=== PATIENT | female | born 1965 | race American Indian/Alaskan Native ===

== ENCOUNTER 2018-07-21 00:47 | Inpatient (IN) | payer SELFPAY ==
[2018-07-21] MEDS ORDERED: NACL 0.9% 1000 ML 1,000 ML IV ONE (01:01)
[2018-07-21 01:51] LABS: Basophils % (Auto) 0.4 % (0.0-1.8); Eosinophils # (Auto) 0.6 K/mm3 (0.0-0.4); Eosinophils % (Auto) 9.6 % (0.0-4.3); Hematocrit 35.1 % (30.3-42.9); Hemoglobin 11.5 gm/dl (10.1-14.3); Lymphocytes # (Auto) 1.6 K/mm3 (1.2-5.4); Lymphocytes % (Auto) 24.6 % (13.4-35.0); Mean Corpuscular HGB Conc 33 % (30-34); Mean Corpuscular Volume 83 fl (79-97); Monocytes # (Auto) 0.7 K/mm3 (0.0-0.8); Monocytes % (Auto) 10.9 % (0.0-7.3); Platelet Count 398 K/mm3 (140-440); Red Blood Count 4.24 M/mm3 (3.65-5.03); Red Cell Distribution Width 15.8 % (13.2-15.2)
[2018-07-21 02:00] LABS: INR 0.95 (0.87-1.13)
[2018-07-21 02:01] LABS: Partial Thromboplastin Time 25.3 Sec. (24.2-36.6)
[2018-07-21 02:14] LABS: Alanine Aminotransferase 15 units/L (7-56); Albumin 3.7 g/dL (3.9-5); BUN/Creatinine Ratio 21; Blood Urea Nitrogen 15 mg/dL (7-17); Calcium 9.2 mg/dL (8.4-10.2); Hemolysis Index 7
--- NOTE | 2018-07-21 02:39 | Emergency Department Report ---
HPI - General Chief Complaint: GI Bleed Time Seen by Provider: 07/21/18 01:43 - HPI HPI: 52-year-old female presents to the emergency department with complaint of a 3 week history of diarrhea and a a more recent history of blood in the stool. At first the blood appeared to be more bright red but over the past few days it has become black. Earlier in the week the patient had tried some Pepto-Bismol for her symptoms without relief. She called her physician in [place], where she currently lives, and was told to start Imodium right ear. It seemed to decrease the frequency of the diarrhea some but then the bleeding started. She denies any fever, abdominal pain, back pain. Patient does admit to history of sciatica for which she has been taking a lot of NSAIDs previously. She otherwise has a past medical history of diabetes and hypertension, hyperlipidemia. ED Past Medical Hx - Past Medical History Previous Medical History?: No Hx Hypertension: Yes Hx Diabetes: Yes Additional medical history: hyperlipidemia, overweight - Surgical History Past Surgical History?: No - Social History Smoking Status: Never Smoker Substance Use Type: None ED Review of Systems ROS: Stated complaint: DIARRHEA W/ BLOODY STOOLS Other details as noted in HPI Comment: All other systems reviewed and negative Constitutional: denies: chills, fever Eyes: denies: eye pain, vision change ENT: denies: ear pain, throat pain Respiratory: denies: cough Cardiovascular: denies: chest pain, palpitations Gastrointestinal: melena. denies: abdominal pain, vomiting Genitourinary: denies: dysuria, discharge Musculoskeletal: denies: joint swelling, arthralgia Skin: denies: rash, lesions Neurological: denies: headache, weakness Physical Exam - Physical Exam Vital Signs: Vital Signs 07/21/18 07/21/18 07/21/18 00:50 01:40 01:46 Temperature 98.3 F Pulse Rate 102 H 89 87 Respiratory 18 13 17 Rate Blood Pressure 155/90 140/67 O2 Sat by Pulse 100 94 90 Oximetry Physical Exam: GENERAL: The patient is well-developed well-nourished. HEENT: Normocephalic. Atraumatic. Patient has moist mucous membranes. EYES: Extraocular motions are intact. Pupils are equal and reactive to light bilaterally. NECK: Supple. Trachea is midline. CHEST/LUNGS: Clear to auscultation. There is no respiratory distress noted. HEART/CARDIOVASCULAR: Regular. There is no tachycardia. There is no obvious murmur. ABDOMEN: Abdomen is soft, nontender. Patient has normal bowel sounds. There is no abdominal distention. SKIN: Skin is warm and dry. NEURO: The patient is awake, alert, and oriented. The patient is cooperative. The patient has no focal neurologic deficits. The patient has normal speech. MUSCULOSKELETAL: There is no tenderness or deformity. There is no limitation r silvio of motion. There is no evidence of acute injury. RECTAL: Patient has nonthrombosed external hemorrhoids. There is dark black stool that is positive on guaiac testing. ED Course Vital Signs 07/21/18 07/21/18 07/21/18 00:50 01:40 01:46 Temperature 98.3 F Pulse Rate 102 H 89 87 Respiratory 18 13 17 Rate Blood Pressure 155/90 140/67 O2 Sat by Pulse 100 94 90 Oximetry ED Medical Decision Making - Lab Data Result diagrams: 07/21/18 01:11 07/21/18 01:11 - Radiology Data Radiology results: report reviewed PROCEDURE: CT ABDOMEN PELVIS W CON TECHNIQUE: Computerized axial tomography of the abdomen and pelvis was performed after the IV injection of iodinated nonionic contrast. HISTORY: Abd pain, GI Bleed COMPARISON: No prior studies are available for comparison. FINDINGS: Visualized lower thorax: No significant abnormality. Liver: There is a 1.5 centimeter area of hypoattenuation in the central right lobe of the liver. A vascular malformation such as hemangioma is suspected. The size and remaining echogenicity of the liver is normal.. Spleen: Normal size and attenuation. Gallbladder and biliary system: Normal. Pancreas: Normal. Adrenals: Normal. Kidneys: No hydronephrosis. No renal stones or masses. GI tract: No obstruction. No ileus or enteritis. The cecum, appendix and colon are normal.. Lymph nodes and mesentery: Normal. Vasculature: Normal. Bladder: Normal. Reproductive organs: Normal. Peritoneum: No free fluid. Musculoskeletal structures: No significant abnormality. Other: None. IMPRESSION: Normal examination of the abdomen and pelvis Transcribed By: [facility] Dictated By: RAMONA MARIE MD Electronically Authenticated By: RAMONA MARIE MD Signed Date/Time: 07/21/18 0429 - Medical Decision Making This patient presents with about a 3 week history of copious diarrhea and about 5 days of rectal bleeding with the diarrhea. More recently she describes it as being melena and on examination she does have some dark black stool that was positive on guaiac testing. The patient also says that she's been taking a lot of NSAIDs prior to all this secondary to some chronic back pain and sciatica. However the patient denies any upper abdominal pain. Labs have been mostly unremarkable. CT scan did not show any intra-abdominal or pelvic pathology. The patient has used the bathroom for diarrhea about 5 times since being in the emergency department. She lives in [place] and does not return there for about 5 days and does not have any established care with gastroenterology there. For this reason, with the GI bleeding, the patient will be admitted to the hospital for further evaluation and treatment. She has been started on some Protonix. She was accepted for admission by the hospitalist, Dr. Almodovar. - Differential Diagnosis hemorrhoids, malignancy, gastric or duodenal ulcer, PUD Critical Care Time: No Critical care attestation.: If time is entered above; I have spent that time in minutes in the direct care of this critically ill patient, excluding procedure time. ED Disposition Clinical Impression: Melena GI bleed Qualifiers: GI bleed type/associated pathology: melena Qualified Code(s): K92.1 - Melena Diarrhea Qualifiers: Diarrhea type: unspecified type Qualified Code(s): R19.7 - Diarrhea, unspecified Disposition: OP ADMIT IP TO THIS HOSP Is pt being admited?: Yes Condition: Fair Referrals: KEITH NOEL MD [Primary Care Provider] - 3-5 Days Forms: Accompanied Note Time of Disposition: 06:11
--- NOTE | 2018-07-21 04:29 | Cat Scan Report ---
FINAL REPORT PROCEDURE: CT ABDOMEN PELVIS W CON TECHNIQUE: Computerized axial tomography of the abdomen and pelvis was performed after the IV inject ion of iodinated nonionic contrast. HISTORY: Abd pain, GI Bleed COMPARISON: No prior studies are available for comparison. FINDINGS: Visualized lower thorax: No significant abnormality. Liver: There is a 1.5 centimeter area of hypoattenuation in the central right lobe of the liver. A va scular malformation such as hemangioma is suspected. The size and remaining echogenicity of the liver is normal.. Spleen: Normal size and attenuation. Gallbladder and biliary system: Normal. Pancreas: Normal. Adrenals: Normal. Kidneys: No hydronephrosis. No renal stones or masses. GI tract: No obstruction. No ileus or enteritis. The cecum, appendix and colon are normal.. Lymph nodes and mesentery: Normal. Vasculature: Normal. Bladder: Normal. Reproductive organs: Normal. Peritoneum: No free fluid. Musculoskeletal structures: No significant abnormality. Other: None. IMPRESSION: Normal examination of the abdomen and pelvis
[2018-07-21] MEDS ORDERED: PROTONIX IV ONE (05:12)
[2018-07-21] MEDS ORDERED: LEVAQUIN 750MG/150ML 750 MG/150 ML BAG IV ONE (05:14)
[2018-07-21] MEDS ORDERED: PROTONIX 80 MG in NACL 0.9% 100 ML IV SCH (06:00)
[2018-07-21] MEDS ORDERED: ZOFRAN IV PRN (06:16)
[2018-07-21] MEDS ORDERED: D50W (25GM) Syringe IV PRN (06:18)
--- NOTE | 2018-07-21 07:45 | History and Physical Report ---
CHIEF COMPLAINT: Melena stool with diarrhea. HISTORY OF PRESENT ILLNESS: The patient is a 52-year-old female who said she has been having diarrhea for about 3 weeks and then about a week and half ago, she started seeing bright red blood in stool and then it turned into dark stool and has been dark since then. The patient states she has tried Pepto-Bismol for her symptoms without relief. She called up to her primary care doctor in [place] who told her to start Imodium. She said that the Imodium seemed to decrease the frequency of the diarrhea and then she started bleeding per rectum. There is no history of abdominal pain and no history of fever or chills. Also, the patient admitted to taking Aleve tablets a lot for treatment of her sciatica. There is no history of nausea and vomiting. There is no history of shortness of breath or chest pain. PAST MEDICAL HISTORY: Pertinent for hypertension, diabetes mellitus, hyperlipidemia, obesity. PAST SURGICAL HISTORY: Unremarkable. FAMILY HISTORY: Noncontributory. SOCIAL HISTORY: The patient does not smoke, does not drink alcohol, and does not use illicit drugs. MEDICATIONS: The patient's home medications are not known at this time. ALLERGIES: THE PATIENT IS ALLERGIC TO SULFA DRUGS. REVIEW OF SYSTEMS: CONSTITUTIONAL: There is no fever, no chills, no diaphoresis. HEENT: There is no headache or sore throat. CARDIOVASCULAR SYSTEM: There is no chest pain or orthopnea. RESPIRATORY SYSTEM: There is no shortness of breath or cough. GASTROINTESTINAL SYSTEM: There is no abdominal pain and there is no nausea, no vomiting, but there is diarrhea and there is melena and no hematochezia. NEUROLOGICAL SYSTEM: There is no numbness, no dizziness, no altered mental status. MUSCULOSKELETAL SYSTEM: There is no joint pain or swelling. DERMATOLOGICAL SYSTEM: There is no skin rash or itching. GENITOURINARY SYSTEM: There is no dysuria, hematuria, or flank pain. Rest of system review is normal. PHYSICAL EXAMINATION: GENERAL: At the time of exam, the patient was found to be alert, oriented x 3, and not in acute distress. VITAL SIGNS: At the initial time of presentation showed temperature of 98.3 degrees Fahrenheit, pulse of 102, respirations 18, blood pressure 155/90, O2 sat of 100% on room air. HEENT: Showed pupils to be equal, round, reactive to light and accommodating. Extraocular muscles are intact. NECK: Neck is supple with no JVD or carotid bruit. CARDIOVASCULAR SYSTEM: Showed normal first and second heart sounds with no gallops or murmurs. RESPIRATORY SYSTEM: Showed good air entry on both sides of the lungs with no abnormal breath sounds. GASTROINTESTINAL SYSTEM: Show abdomen to be full, soft, nontender with no organomegaly or rigidity. NEUROLOGICAL: Show no focal deficits. MUSCULOSKELETAL SYSTEM: Show no joint swelling or tenderness. DERMATOLOGICAL SYSTEM: Show no skin rash. GENITOURINARY SYSTEM: Showing no costovertebral angle tenderness. PERTINENT LABORATORY AND IMAGING STUDIES: The patient had CT of the abdomen and pelvis done that came back unremarkable. The patient's lab results shows CBC with normal white count, normal hemoglobin, and normal hematocrit with CBC differential showing elevated monocyte count of 10.9. The patient's coagulation studies were unremarkable and chemistry came back with a slightly low albumin level of 3.7. DIAGNOSES: 1. Gastrointestinal bleed. 2. Diarrhea. PLAN OF CARE: 1. The patient will be admitted to telemetry as inpatient. 2. The patient will have hemoglobin and hematocrit checked every 6 hours x 3 more levels. 3. The patient will continue GI consult with Dr. Timbo Vines requested by the Emergency Room physician. 4. The patient will be n.p.o. until seen by the Gastroenterology. 5. The patient will continue IV Protonix drip started in the Emergency Room and will be on IV normal saline at 125 mL an hour. 6. The patient's DVT prophylaxis will be through sequential compressive device. JOB# [id number] OCN/NTS AMANDA
[2018-07-21] MEDS: HumuLIN R SUB-Q SCH ×5 (08:15→23:11)
[2018-07-21] MEDS: NACL 0.9% 1000 ML 1,000 ML IV SCH ×2 (08:16→21:04)
[2018-07-21 11:52] LABS: Hematocrit 33.6 % (30.3-42.9); Hemoglobin 11.1 gm/dl (10.1-14.3)
--- NOTE | 2018-07-21 13:23 | Gastroenterology Consultation ---
Addendum entered and electronically signed by MIK ONEAL MD 07/21/18 19:36: I have personally interviewed and examined the patient. She is doing well without N/V/Abdominal pain. Suspect the dark stools were due to peptobismol. No role for endoscopy at present. Will follow to assure acute GI issues resolve. Original Note: History of Present Illness - Reason for Consult Consult date: 07/21/18 GI bleed,melena? Requesting physician: CATHY SAMUEL - History of Present Illness Patient is a 52 y/o female with PMH of HTN, DM, HLD, obesity, and chronic back pain (sciatica) who presented to ED with c/o diarrhea and blood in her stool to which GI has been consulted. This morning patient was resting in bed w/o acute distress. Reports an acute onset of diarrhea with loose watery stools x 3 weeks with BMs x 6-7/day (baseline is BM x 1/day). Admits to also having blood in her stool with a scant amount of bright red blood at first with stools later becoming black in color and mild rectal pain (no rectal trauma). Has been taking Imodium and pepto-bismol at home for diarrhea, along with heavy NSAID use for chronic back pain (Naproxen/Aleve). Denies fever, CP, SOB, abd pain, N/V, hematemesis, or constipation. No recent abx therapy, travel, or ill contacts. No previous hx of GI bleeding, PUD, liver disease, or EGD. Last colonoscopy was 3 years ago in [place] that showed diverticulosis. No Fhx of GI cancers. Abd CT upon admission was negative and H/H WNL. Upon exam, abd benign and rectal revealed liquid brown stool and external hemorrhoids (one slightly thrombosed). Past History Past Medical History: diabetes, hypertension, hyperlipidemia, other (obesity) Past Surgical History: No surgical history Social history: denies: smoking, alcohol abuse Medications and Allergies Allergies Allergy/AdvReac Type Severity Reaction Status Date / Time sulfamethoxazole Allergy Hives Verified 07/21/18 00:50 [From Bactrim] trimethoprim [From Bactrim] Allergy Hives Verified 07/21/18 00:50 Active Meds: Active Medications Dextrose (D50w (25gm) Syringe) 50 ml IV PRN PRN PRN Reason: Hypoglycemia Pantoprazole Sodium 80 mg/ (Sodium Chloride) 100 mls @ 10 mls/hr IV DIRECT ROLNAD Last Admin: 07/21/18 07:40 Dose: 8 mg/hr, 10 mls/hr Documented by: Sodium Chloride (Nacl 0.9% 1000 Ml) 1,000 mls @ 125 mls/hr IV DIRECT ROLAND Last Admin: 07/21/18 08:16 Dose: 125 mls/hr Documented by: Insulin Human Regular (Humulin R) 0 units SUB-Q Q4H ROLAND; Protocol Last Admin: 07/21/18 11:00 Dose: Not Given Documented by: Ondansetron HCl (Zofran) 4 mg IV Q8H PRN PRN Reason: Nausea And Vomiting medications reviewed/updated as required Review of Systems - Review of Systems All systems: negative Gastrointestinal: diarrhea, other (blood in stool-bright red blood and black stool) Exam - Constitutional Vital Signs: Temp Pulse Resp BP Pulse Ox 98.3 F 76 15 127/65 97 07/21/18 00:50 07/21/18 10:06 07/21/18 09:00 07/21/18 10:06 07/21/18 10:06 General appearance: no acute distress, obese - EENT Eyes: PERRL, EOM intact ENT: hearing intact - Respiratory Respiratory: bilateral: CTA - Cardiovascular Rhythm: regular Heart Sounds: Present: S1 & S2 - Gastrointestinal General gastrointestinal: Present: soft, non-tender, non-distended, normal bowel sounds Rectal Exam: other (liquid brown stool and external hemorroids (one slightly thrombosed)-reed or wind instrument repairer present during exam (Breann BANEGAS)) - Neurologic Neurological: alert and oriented x3 - Labs CBC & Chem 7: 07/21/18 11:30 07/21/18 01:11 Lab Results: Laboratory Results - last 24 hr 07/21/18 07/21/18 07/21/18 01:11 01:11 01:11 WBC 6.5 RBC 4.24 Hgb 11.5 Hct 35.1 MCV 83 MCH 27 L MCHC 33 RDW 15.8 H Plt Count 398 Lymph % (Auto) 24.6 Canadian % (Auto) 10.9 H Eos % (Auto) 9.6 H Baso % (Auto) 0.4 Lymph # 1.6 Canadian # 0.7 Eos # 0.6 H Baso # 0.0 Seg Neutrophils % 54.5 Seg Neutrophils # 3.5 PT 13.1 INR 0.95 APTT 25.3 Sodium 138 Potassium 3.9 Chloride 99.3 Carbon Dioxide 26 Anion Gap 17 BUN 15 Creatinine 0.7 Estimated GFR > 60 BUN/Creatinine Ratio 21 Glucose 141 H POC Glucose Calcium 9.2 Total Bilirubin 0.20 AST 18 ALT 15 Alkaline Phosphatase 114 Total Protein 7.7 Albumin 3.7 L Albumin/Globulin Ratio 0.9 Lipase 23 Blood Type Antibody Screen 07/21/18 07/21/18 07/21/18 01:11 08:11 11:30 WBC RBC Hgb 11.1 Hct 33.6 MCV MCH MCHC RDW Plt Count Lymph % (Auto) Canadian % (Auto) Eos % (Auto) Baso % (Auto) Lymph # Canadian # Eos # Baso # Seg Neutrophils % Seg Neutrophils # PT INR APTT Sodium Potassium Chloride Carbon Dioxide Anion Gap BUN Creatinine Estimated GFR BUN/Creatinine Ratio Glucose POC Glucose 98 Calcium Total Bilirubin AST ALT Alkaline Phosphatase Total Protein Albumin Albumin/Globulin Ratio Lipase Blood Type A POSITIVE Antibody Screen Negative 07/21/18 12:17 WBC RBC Hgb Hct MCV MCH MCHC RDW Plt Count Lymph % (Auto) Canadian % (Auto) Eos % (Auto) Baso % (Auto) Lymph # Canadian # Eos # Baso # Seg Neutrophils % Seg Neutrophils # PT INR APTT Sodium Potassium Chloride Carbon Dioxide Anion Gap BUN Creatinine Estimated GFR BUN/Creatinine Ratio Glucose POC Glucose 82 Calcium Total Bilirubin AST ALT Alkaline Phosphatase Total Protein Albumin Albumin/Globulin Ratio Lipase Blood Type Antibody Screen Assessment and Plan 1.GI bleed 2.diarrhea -afebrile -INR 0.95 -BUN 15 -LFTs and lipase WNL -abd CT negative -H/H WNL (11.1/33.6)-stable -continue to monitor H/H and transfuse as needed -patient reports acute on set of diarrhea x 3 weeks with watery stool with scant amount of bright red blood in stool, which recent turned black in color (was taking pepto-bismol at home). No abd pain, N/V, hematemeis. Rectal exam today, revealed liquid brown stool with external hemorrhoids (one slightly thrombosed). -last colonoscopy was 3 years ago in [place] that revealed diverticulosis per pt report -etiology-BRBPR- likely 2/2 hemorrhoids; black stool likely 2/2 pepto-bismol vs other -stool studies pending for diarrhea -no plans for scope at this time given no clinical evidence of significant GI bleeding (will consider based on progress) -okay for clear liquids -continue PPI -start on topical analgesics/steroids for hemorrhoids -continue supportive care -will follow
[2018-07-21] MEDS ORDERED: XYLOCAINE TOPICAL 2% 30ML TP PRN (14:54)
[2018-07-21] MEDS ORDERED: XYLOCAINE TOPICAL 2% 5ML TP ONE (15:00)
[2018-07-21] MEDS: PROCTOSOL-HC PR PRN (16:36)
--- NOTE | 2018-07-21 19:17 | Event Note ---
Date: 07/21/18 Patient seen and examined medical records reviewed Patient was admitted this morning with melena and GI bleeding GI evaluated the patient, no plans of endoscopy at this point Continue Protonix, supportive care for hemorrhoids Agree with the current management closely monitor plan of care reviewed with the patient and her nurse
[2018-07-21 19:24] LABS: Hematocrit 32.4 % (30.3-42.9); Hemoglobin 10.5 gm/dl (10.1-14.3)
[2018-07-21] MEDS: PROTONIX IV SCH (21:04)
[2018-07-22 01:17] LABS: Hematocrit 30.1 % (30.3-42.9); Hemoglobin 9.7 gm/dl (10.1-14.3)
[2018-07-22] MEDS: NACL 0.9% 1000 ML 1,000 ML IV SCH (04:12)
[2018-07-22] MEDS: HumuLIN R SUB-Q SCH ×3 (07:44→22:35)
--- NOTE | 2018-07-22 10:28 | Gastroenterology Progress Note ---
Addendum entered and electronically signed by MIK ONEAL MD 07/22/18 16:16: I have personally interviwed and examined the patient. I agree with the above A/P. Will start abx, and consider repeat colonoscopy based on clinical course. Addendum entered and electronically signed by CHEYANNE LOPEZ NP 07/22/18 14:48: start on empiric antibiotics (levaquin/flagyl) Addendum entered and electronically signed by CHEYANNE LOPEZ NP 07/22/18 13:01: TSH in am Original Note: Assessment and Plan 1.GI bleed 2.diarrhea -afebrile -INR 0.95 -BUN 15 -LFTs and lipase WNL -abd CT negative -H/H 9.7/31.0 -continue to monitor H/H and transfuse as needed -no active signs of bleeding overnight or this am -last colonoscopy was 3 years ago in [place] that revealed diverticulosis per pt report -black [id number] from pepto-bismol -[id number] 2/2 hemorrhoids -no plan for scope at this time unless over overt bleeding develops -clinically, patient is stable. Reports hemorrhoid/rectal pain/bleeding now improved. Has c/o continued diarrhea with BMs x 3 overnight with watery brown stool. Denies abd pain or N/V. Tolerating clears. -stool studies pending -okay to advance diet -continue PPI and proctosol -continue supportive care -will follow Subjective Date of service: 07/22/18 Principal diagnosis: GI bleed Interval history: Patient resting in bed w/o acute distress. Reports no active signs of bleeding overnight or this am and rectal/hemorrhoid pain improved with proctosol but has continued diarrhea with 3 BMs overnight with watery brown stool. No abd pain or N/V. Tolerating clears. Objective - Constitutional Vitals: Temp Pulse Resp BP Pulse Ox 98.2 F 70 18 119/54 97 07/22/18 04:56 07/22/18 04:56 07/22/18 04:56 07/22/18 04:56 07/22/18 04:56 General appearance: no acute distress - Respiratory Respiratory: bilateral: CTA - Cardiovascular Rhythm: regular Heart Sounds: Present: S1 & S2 - Gastrointestinal General gastrointestinal: Present: soft, non-tender, non-distended, normal bowel sounds - Neurologic Neurological: alert and oriented x3 - Labs CBC & Chem 7: 07/22/18 01:03 07/21/18 01:11 Labs: Laboratory Results - last 24 hr 07/21/18 07/21/18 07/21/18 11:30 12:17 16:42 Hgb 11.1 Hct 33.6 POC Glucose 82 95 07/21/18 07/21/18 07/22/18 19:14 22:45 01:03 Hgb 10.5 9.7 L Hct 32.4 30.1 L POC Glucose 107 H 07/22/18 05:01 Hgb Hct POC Glucose 102
[2018-07-22] MEDS: PROCTOSOL-HC PR PRN (11:44)
[2018-07-22] MEDS: PROTONIX PO SCH ×2 (11:44→22:35)
[2018-07-22] MEDS: PROTONIX IV SCH (11:45)
--- NOTE | 2018-07-22 15:37 | Progress Note ---
Assessment and Plan Assessment and plan: 52-year-old morbidly obese female patient was admitted to the emergency room with 3 weeks of diarrhea and recent episodes of rectal bleeding bright red as well as melena, Patient is hemodynamically stable GI evaluation the patient endoscopy, Patient has chronic diarrhea possible colitis, GI started empiric antibiotics --Rectal bleeding/melena; resolved, closely monitor --Acute on chronic diarrhea; probably infectious/colitis Empiric antibiotics Levaquin and Flagyl, supportive care, stool analysis --Morbid obesity BMI 45.9, Counseling, diet modification, exercise as tolerated and weight reduction when medically stable --DVT prophylaxis; Lovenox Closely monitor patient had just management as needed GI evaluation recommendation noted and appreciated ; History Interval history: Patient seen and examined medical records reviewed Patient continues to have diarrhea and vague abdominal pain intermittent Denies hematemesis or melena Alert awake oriented 3 Vital signs noted Hospitalist Physical - Constitutional Vitals: Temp Pulse Resp BP Pulse Ox 98.7 F 82 20 130/66 98 07/22/18 08:44 07/22/18 08:44 07/22/18 08:44 07/22/18 08:44 07/22/18 08:44 General appearance: Present: no acute distress, well-nourished, obese (morbidly obese) - EENT Eyes: Present: PERRL, EOM intact - Neck Neck: Present: supple, normal ROM - Respiratory Respiratory effort: normal Respiratory: bilateral: diminished, negative: rales, rhonchi, wheezing - Cardiovascular Rhythm: regular Heart Sounds: Present: S1 & S2 - Extremities Extremities: no ischemia, No edema - Abdominal General gastrointestinal: soft, non-tender, non-distended, normal bowel sounds - Integumentary Integumentary: Present: clear, warm - Psychiatric Psychiatric: appropriate mood/affect, cooperative - Neurologic Neurologic: CNII-XII intact, moves all extremities Results - Labs CBC & Chem 7: 07/22/18 01:03 07/21/18 01:11 Labs: Laboratory Last Values WBC 6.5 K/mm3 (4.5-11.0) 07/21/18 01:11 RBC 4.24 M/mm3 (3.65-5.03) 07/21/18 01:11 Hgb 9.7 gm/dl (10.1-14.3) L 07/22/18 01:03 Hct 30.1 % (30.3-42.9) L 07/22/18 01:03 MCV 83 fl (79-97) 07/21/18 01:11 MCH 27 pg (28-32) L 07/21/18 01:11 MCHC 33 % (30-34) 07/21/18 01:11 RDW 15.8 % (13.2-15.2) H 07/21/18 01:11 Plt Count 398 K/mm3 (140-440) 07/21/18 01:11 Lymph % (Auto) 24.6 % (13.4-35.0) 07/21/18 01:11 [place] % (Auto) 10.9 % (0.0-7.3) H 07/21/18 01:11 Eos % (Auto) 9.6 % (0.0-4.3) H 07/21/18 01:11 Baso % (Auto) 0.4 % (0.0-1.8) 07/21/18 01:11 Lymph # 1.6 K/mm3 (1.2-5.4) 07/21/18 01:11 [place] # 0.7 K/mm3 (0.0-0.8) 07/21/18 01:11 Eos # 0.6 K/mm3 (0.0-0.4) H 07/21/18 01:11 Baso # 0.0 K/mm3 (0.0-0.1) 07/21/18 01:11 Seg Neutrophils % 54.5 % (40.0-70.0) 07/21/18 01:11 Seg Neutrophils # 3.5 K/mm3 (1.8-7.7) 07/21/18 01:11 PT 13.1 Sec. (12.2-14.9) 07/21/18 01:11 INR 0.95 (0.87-1.13) 07/21/18 01:11 APTT 25.3 Sec. (24.2-36.6) 07/21/18 01:11 Sodium 138 mmol/L (137-145) 07/21/18 01:11 Potassium 3.9 mmol/L (3.6-5.0) 07/21/18 01:11 Chloride 99.3 mmol/L (98-107) 07/21/18 01:11 Carbon Dioxide 26 mmol/L (22-30) 07/21/18 01:11 Anion Gap 17 mmol/L 07/21/18 01:11 BUN 15 mg/dL (7-17) 07/21/18 01:11 Creatinine 0.7 mg/dL (0.7-1.2) 07/21/18 01:11 Estimated GFR > 60 ml/min 07/21/18 01:11 BUN/Creatinine Ratio 21 % 07/21/18 01:11 Glucose 141 mg/dL (65-100) H 07/21/18 01:11 POC Glucose 104 (70-105) 07/22/18 12:08 Calcium 9.2 mg/dL (8.4-10.2) 07/21/18 01:11 Total Bilirubin 0.20 mg/dL (0.1-1.2) 07/21/18 01:11 AST 18 units/L (5-40) 07/21/18 01:11 ALT 15 units/L (7-56) 07/21/18 01:11 Alkaline Phosphatase 114 units/L (35-129) 07/21/18 01:11 Total Protein 7.7 g/dL (6.3-8.2) 07/21/18 01:11 Albumin 3.7 g/dL (3.9-5) L 07/21/18 01:11 Albumin/Globulin Ratio 0.9 % 07/21/18 01:11 Lipase 23 units/L (13-60) 07/21/18 01:11 C. difficile Toxin A&B Negative (Negative) 07/21/18 02:00 Blood Type A POSITIVE 07/21/18 01:11 Antibody Screen Negative 07/21/18 01:11
[2018-07-22] MEDS: FLAGYL 500 MG/100 ML 500 MG/100 ML BAG IV SCH ×2 (16:17→23:58)
[2018-07-22] MEDS: LEVAQUIN 500MG/100ML 500 MG/100 ML BAG IV SCH (16:17)
[2018-07-23] MEDS: NACL 0.9% 1000 ML 1,000 ML IV SCH (00:04)
[2018-07-23] MEDS: HumuLIN R SUB-Q SCH ×3 (08:07→18:36)
[2018-07-23] MEDS: FLAGYL 500 MG/100 ML 500 MG/100 ML BAG IV SCH ×2 (09:10→17:26)
[2018-07-23] MEDS: PROTONIX PO SCH ×2 (10:46→21:54)
--- NOTE | 2018-07-23 11:32 | Gastroenterology Progress Note ---
Addendum entered and electronically signed by MIK ONEAL MD 07/23/18 15:33: I have personally interviewed and examined the patient. She is markedly better with much less urgency, and less frequent BMs. OK to d/c home on a 5 day total course of antibiotics (is on day 2 currently). Original Note: Assessment and Plan 1.GI bleed 2.diarrhea -afebrile -abd CT negative -WBC and H/H WNL -TSH 43.380 -no active signs of bleeding overnight or this am -stool negative for C-diff -stool culture pending -stool for WBC- showed many polymorphonuclear cells -last colonoscopy was 3 years ago in [place] that revealed diverticulosis per pt report -black [id number] from pepto-bismol -[id number] 2/2 hemorrhoids; hemorrhoids/rectal pain now improved with proctosol -no plan for scope at this time -clinically, patient is stable. Reports diarrhea now improving. Denies abd pain or N/V. Tolerating diet. -transition empiric antibiotics (levaquin/flagyl) to PO -continue PPI and proctosol -continue supportive care -consider repeat colonoscopy as outpatient if diarrhea persists -no further recommendations at this time -patient okay to be d/c per GI standpoint on antibiotics x 5 days with follow up in clinic -will sign off, please call if eneded Subjective Date of service: 07/23/18 Principal diagnosis: GI bleed Interval history: No acute distress. Reports diarrhea now improving on empiric antibiotics (frequency decreasing with BMs x 2 overnight and this am). Denies abd pain, N/V, or signs of bleeding. Tolerating diet. Objective - Constitutional Vitals: Temp Pulse Resp BP Pulse Ox 98.3 F 75 14 139/81 96 07/23/18 04:48 07/23/18 04:48 07/23/18 04:48 07/23/18 04:48 07/23/18 04:48 General appearance: no acute distress, obese - Respiratory Respiratory: bilateral: CTA - Cardiovascular Rhythm: regular Heart Sounds: Present: S1 & S2 - Gastrointestinal General gastrointestinal: Present: soft, non-tender, non-distended, normal bowel sounds - Neurologic Neurological: alert and oriented x3 - Labs CBC & Chem 7: 07/22/18 01:03 07/21/18 01:11 Labs: Laboratory Results - last 24 hr 07/21/18 07/22/18 07/22/18 02:00 12:08 17:45 POC Glucose 104 96 TSH C. difficile Toxin A&B Negative 07/22/18 07/23/18 07/23/18 20:43 05:34 05:40 POC Glucose 156 H 93 TSH 4.380 H C. difficile Toxin A&B
[2018-07-23] MEDS: LEVAQUIN 500MG/100ML 500 MG/100 ML BAG IV SCH (16:05)
[2018-07-23] MEDS ORDERED: PROCTOSOL-HC PR PRN (17:00)
--- NOTE | 2018-07-23 17:59 | Progress Note ---
Assessment and Plan Assessment and plan: 52-year-old morbidly obese female patient was admitted to the emergency room with 3 weeks of diarrhea and recent episodes of rectal bleeding bright red as well as melena, Patient is hemodynamically stable GI evaluation no plans of endoscopy, Patient has chronic diarrhea possible colitis, GI started empiric antibiotics --Rectal bleeding/melena; resolved, closely monitor --Acute on chronic diarrhea; probably infectious/colitis Empiric antibiotics Levaquin and Flagyl, supportive care, stool analysis Recommend total 5 days of antibiotics, C. difficile negative --Morbid obesity BMI 45.9, Counseling, diet modification, exercise as tolerated and weight reduction when medically stable --DVT prophylaxis; Lovenox Closely monitor patient had just management as needed Possible discharge home tomorrow if stable ; History Interval history: Patient seen and examined medical records reviewed Patient continues to have most he had about 5-6 loose bowel movements Complaints of mild dizziness and weakness Alert awake oriented 3 Vital signs noted, Hospitalist Physical - Constitutional Vitals: Temp Pulse Resp BP Pulse Ox 98.1 F 81 16 142/77 96 07/23/18 17:38 07/23/18 17:38 07/23/18 17:38 07/23/18 17:38 07/23/18 17:38 General appearance: Present: no acute distress, well-nourished, obese (morbidly obese) - EENT Eyes: Present: PERRL, EOM intact - Neck Neck: Present: supple, normal ROM - Respiratory Respiratory effort: normal Respiratory: bilateral: diminished, negative: rales, rhonchi, wheezing - Cardiovascular Rhythm: regular Heart Sounds: Present: S1 & S2 - Extremities Extremities: no ischemia, No edema - Abdominal General gastrointestinal: soft, non-tender, non-distended, normal bowel sounds - Integumentary Integumentary: Present: clear, warm - Psychiatric Psychiatric: appropriate mood/affect, cooperative - Neurologic Neurologic: CNII-XII intact, moves all extremities Results - Labs CBC & Chem 7: 07/22/18 01:03 07/21/18 01:11 Labs: Laboratory Last Values WBC 6.5 K/mm3 (4.5-11.0) 07/21/18 01:11 RBC 4.24 M/mm3 (3.65-5.03) 07/21/18 01:11 Hgb 9.7 gm/dl (10.1-14.3) L 07/22/18 01:03 Hct 30.1 % (30.3-42.9) L 07/22/18 01:03 MCV 83 fl (79-97) 07/21/18 01:11 MCH 27 pg (28-32) L 07/21/18 01:11 MCHC 33 % (30-34) 07/21/18 01:11 RDW 15.8 % (13.2-15.2) H 07/21/18 01:11 Plt Count 398 K/mm3 (140-440) 07/21/18 01:11 Lymph % (Auto) 24.6 % (13.4-35.0) 07/21/18 01:11 [place] % (Auto) 10.9 % (0.0-7.3) H 07/21/18 01:11 Eos % (Auto) 9.6 % (0.0-4.3) H 07/21/18 01:11 Baso % (Auto) 0.4 % (0.0-1.8) 07/21/18 01:11 Lymph # 1.6 K/mm3 (1.2-5.4) 07/21/18 01:11 [place] # 0.7 K/mm3 (0.0-0.8) 07/21/18 01:11 Eos # 0.6 K/mm3 (0.0-0.4) H 07/21/18 01:11 Baso # 0.0 K/mm3 (0.0-0.1) 07/21/18 01:11 Seg Neutrophils % 54.5 % (40.0-70.0) 07/21/18 01:11 Seg Neutrophils # 3.5 K/mm3 (1.8-7.7) 07/21/18 01:11 PT 13.1 Sec. (12.2-14.9) 07/21/18 01:11 INR 0.95 (0.87-1.13) 07/21/18 01:11 APTT 25.3 Sec. (24.2-36.6) 07/21/18 01:11 Sodium 138 mmol/L (137-145) 07/21/18 01:11 Potassium 3.9 mmol/L (3.6-5.0) 07/21/18 01:11 Chloride 99.3 mmol/L (98-107) 07/21/18 01:11 Carbon Dioxide 26 mmol/L (22-30) 07/21/18 01:11 Anion Gap 17 mmol/L 07/21/18 01:11 BUN 15 mg/dL (7-17) 07/21/18 01:11 Creatinine 0.7 mg/dL (0.7-1.2) 07/21/18 01:11 Estimated GFR > 60 ml/min 07/21/18 01:11 BUN/Creatinine Ratio 21 % 07/21/18 01:11 Glucose 141 mg/dL (65-100) H 07/21/18 01:11 POC Glucose 154 (70-105) H 07/23/18 11:53 Calcium 9.2 mg/dL (8.4-10.2) 07/21/18 01:11 Total Bilirubin 0.20 mg/dL (0.1-1.2) 07/21/18 01:11 AST 18 units/L (5-40) 07/21/18 01:11 ALT 15 units/L (7-56) 07/21/18 01:11 Alkaline Phosphatase 114 units/L (35-129) 07/21/18 01:11 Total Protein 7.7 g/dL (6.3-8.2) 07/21/18 01:11 Albumin 3.7 g/dL (3.9-5) L 07/21/18 01:11 Albumin/Globulin Ratio 0.9 % 07/21/18 01:11 Lipase 23 units/L (13-60) 07/21/18 01:11 TSH 4.380 mlU/mL (0.270-4.200) H 07/23/18 05:34 C. difficile Toxin A&B Negative (Negative) 07/21/18 02:00 Blood Type A POSITIVE 07/21/18 01:11 Antibody Screen Negative 07/21/18 01:11
[2018-07-24 06:31] VITALS: BP 137/72
--- NOTE | 2018-07-24 07:56 | Discharge Summary ---
Providers - Providers Date of Admission: 07/21/18 06:13 Date of discharge: 07/24/18 Attending physician: SOLANGE ABREU 07/21/18 05:11 Consult to Physician [CONS] Routine Comment: Consulting Provider: MIK ONEAL Physician Instructions: Reason For Exam: GI Bleed, Melena Primary care physician: [facility], [place] Hospitalization Reason for admission: diarrhea /rectal bleeding Condition: Fair Pertinent studies: CT abdomen and pelvis; normal examination Hospital course: 52-year-old morbidly obese female patient was admitted to the emergency room with 3 weeks of diarrhea and recent episodes of rectal bleeding bright red as well as melena, Patient is hemodynamically stable GI evaluation no plans of endoscopy, Patient has chronic diarrhea possible colitis, melena probably secondary to Pepto-Bismol GI started empiric antibiotics cleared for discharge advised to continue antibiotics Patient is hemodynamically and clinically stable at discharge, GI cleared for discharge advised to continue antibiotics Follow-up for further evaluation and management, patient is stable at discharge Discharge diagnosis; --Rectal bleeding/melena; resolved, closely monitor --Acute on chronic diarrhea; probably infectious/colitis Empiric antibiotics Levaquin and Flagyl, supportive care, stool analysis Recommend total 5 days of antibiotics, C. difficile negative --Morbid obesity BMI 45.9, Counseling, diet modification, exercise as tolerated and weight reduction when medically stable Disposition: DC-01 TO HOME OR SELFCARE Time spent for discharge: 31 min Core Measure Documentation - Palliative Care Palliative Care/ Comfort Measures: Not Applicable - Core Measures Any of the following diagnoses?: none Exam - Constitutional Vitals: Temp Pulse Resp BP Pulse Ox 98.9 F 79 18 137/72 96 07/24/18 05:44 07/24/18 05:44 07/24/18 05:44 07/24/18 05:44 07/24/18 05:44 General appearance: Present: no acute distress, well-nourished, obese - EENT Eyes: Present: PERRL, EOM intact - Neck Neck: Present: supple, normal ROM - Respiratory Respiratory effort: normal Respiratory: negative: rales, rhonchi, wheezing - Cardiovascular Rhythm: regular Heart Sounds: Present: S1 & S2 - Extremities Extremities: no ischemia, No edema - Abdominal General gastrointestinal: Present: soft, non-tender, non-distended, normal bowel sounds - Integumentary Integumentary: Present: clear, warm - Musculoskeletal Musculoskeletal: strength equal bilaterally - Psychiatric Psychiatric: appropriate mood/affect, cooperative - Neurologic Neurologic: CNII-XII intact, moves all extremities Plan Activity: advance as tolerated Diet: regular Follow up with: KEITH NOEL MD [Primary Care Provider] - 3-5 Days MIK ONEAL MD [Staff Physician] - 7 Days Forms: Accompanied Note Prescriptions: Hydrocortisone 2.5% [Proctosol-Hc] 1 applic RI Q8H PRN #1 tube PRN Reason: Hemorrhoids levoFLOXacin [Levaquin] 750 mg PO QDAY #3 tablet metroNIDAZOLE [Flagyl] 500 mg PO Q8HR #9 tablet Pantoprazole [Protonix TAB] 40 mg PO BID #30 tablet
[2018-07-24] MEDS: NACL 0.9% 1000 ML 1,000 ML IV SCH (08:01)
[2018-07-24] MEDS: HumuLIN R SUB-Q SCH ×2 (08:09→11:36)
[2018-07-24] MEDS: FLAGYL 500 MG/100 ML 500 MG/100 ML BAG IV SCH (08:25)
[2018-07-24] MEDS: PROTONIX PO SCH (10:02)
== END 2018-07-24 12:15 | disposition home or self-care (01) | DRG 378 ==
LOC: ED 00:47 → SUATTDRO 00:47 → 4A 06:13 → 3A 07-23 20:19
PROVIDERS: ADMIT Internal Medicine; ATTEND Internal Medicine
DX: K92.2 Gastrointestinal hemorrhage, unspecified (principal); A09 Infectious gastroenteritis and colitis, unspecified; Z68.42 Body mass index [BMI] 45.0-49.9, adult; E66.01 Morbid (severe) obesity due to excess calories; I10 Essential (primary) hypertension; E11.9 Type 2 diabetes mellitus without complications; G89.29 Other chronic pain; M54.9 Dorsalgia, unspecified; Z88.2 Allergy status to sulfonamides; Z71.3 Dietary counseling and surveillance
CPT/HCPCS: 36415; 74177; 80053; 82962; 83690; 84443; 85007; 85014; 85018; 85025; 85610; 85730; 86850; 86900; 86901; 87045; 87324; 93005; 93010; G0378; C9113; J1815; J1956; J7030; Q9967